=== PATIENT | male | born 1995 | race Caucasian/White ===

== ENCOUNTER 2018-05-11 07:04 | Day surgery (SDC) | payer BC ==
--- NOTE | 2018-05-09 14:12 | HP ---
DATE OF SURGERY: 05/11/2018 ADMISSION DIAGNOSIS: Cholecystectomy. HISTORY OF PRESENT ILLNESS: The patient has symptomatic gallstones. Presented to the emergency room. Upper abdominal pain. Findings were discussed with him. Procedure was discussed with him and he wished to proceed. PAST MEDICAL HISTORY: ALLERGIES: NONE. MEDICATIONS: None. PAST SURGICAL HISTORY: None. SOCIAL HISTORY: One pack per day. ETOH negative. FAMILY HISTORY: Negative. REVIEW OF SYSTEMS: CVS: Negative. Pulmonary: Negative. PHYSICAL EXAMINATION: VITAL SIGNS: Normal. CHEST: Clear. COR: Regular. ABDOMEN: No palpable organomegaly or mass. IMPRESSION: Symptomatic cholelithiasis. PLAN: Laparoscopic cholecystectomy.
[2018-05-11] MEDS ORDERED: SUBLIMAZE 250 MCG/5 ML IV ONE (07:05)
[2018-05-11] MEDS ORDERED: BRIDION 200MG/2ML IV ONE (07:05)
[2018-05-11] MEDS ORDERED: Versed 2 MG/2 ML Injection IV ONE (07:05)
[2018-05-11] MEDS ORDERED: DIPRIVAN 200 MG/20 ML IV ONE (07:05)
[2018-05-11] MEDS ORDERED: Zemuron 100 MG/10 ML IV ONE (07:05)
[2018-05-11] MEDS ORDERED: TORAdol 30 mg Injection IV ONE (07:05)
[2018-05-11] MEDS ORDERED: XYLOCAINE 2%/Epi 1:200000 20ML VIAL MPF IJ ONE (07:05)
[2018-05-11] MEDS ORDERED: Sensorcaine 0.25% 10 ML ONE (07:26)
[2018-05-11] MEDS ORDERED: Lactated Ringers 1,000 ML IV ONE (07:26)
[2018-05-11] MEDS ORDERED: Lactated Ringers 1,000 ML IV SCH (07:30)
[2018-05-11] MEDS ORDERED: MEFOXIN 2 GM PREMIX** 2 GM/50 ML ML IV SCH (08:00)
[2018-05-11 12:22] VITALS: O2SAT 100
[2018-05-11 12:53] VITALS: BP 121/67; PULSE 67
--- NOTE | 2018-05-12 07:39 | OP ---
SURGERY DATE/TIME: 05/11/2018 1032 PREOPERATIVE DIAGNOSIS: Symptomatic cholelithiasis. POSTOPERATIVE DIAGNOSIS: Symptomatic cholelithiasis. PROCEDURE: Laparoscopic cholecystectomy. SURGEON: Dr. Guerrier. ANESTHESIA: General endotracheal tube by Myron Juarez CRNA. ESTIMATED BLOOD LOSS: None. DRAINS: None. COMPLICATIONS: None. CONDITION: Stable. INDICATIONS: Multiple small stones probably 1,000 pin point stones. A patient with upper abdominal pain, ultrasound revealing stones. DESCRIPTION OF PROCEDURE AND FINDINGS: Taken to surgery. General anesthetic, routine prep and drape. Veress needle inserted. Opening pressure of 1, insufflating pressure 14. Four - 5's. Good visualization. Cystic artery defined. Cystic artery defined. Both structures triply clipped and transected. Clips noted across and well approximated. Gallbladder rolled out of gallbladder fossa. The gallbladder delivered through upper abdominal port. It was necessary to empty the gallbladder. It had nearly a 1,000 stones. Field is clean and dry. Hole closure device used. Again, the field was dry. CO2 exsufflated. Skin closed with 4-0 Vicryl and Steri-Strips. The patient tolerated the procedure satisfactorily.
== END 2018-05-11 12:45 | disposition home or self-care (01) ==
LOC: SDC 07:04
PROVIDERS: ATTEND Surgery
DX: K80.20 Calculus of gallbladder without cholecystitis without obstruction (principal)
CPT/HCPCS: 88304; J0694; J1885; J2250; J2704; J3010

== ENCOUNTER 2022-08-22 16:23 | Emergency (ER) | payer OTHER ==
[2022-08-22 16:31] VITALS: O2SAT 98
[2022-08-22 16:56] LABS: Absolute Neutrophil Ct (ANC) 5.53 x10^3/uL (1.4-6.9); BASOPHIL % 0.7 % (0.0-0.4); Basophil (Absolute #) 0.06 x10^3/uL (0-0.4); Eosinophil % 1.3 % (0.00-5.0); Eosinophil (Absolute #) 0.12 x10^3/uL (0-0.5); Hematocrit 42.9 % (42-50); Hemoglobin 13.8 g/dL (12.5-18.0); IMMATURE GRAN # 0.05 x10^3u/L (0.00-0.03); IMMATURE GRAN % 0.6 % (0.00-0.4); Lymphocyte (Absolute #) 2.41 x10^3/uL (1.0-4.6); Lymphocytes % 26.6 % (24.0-44.0); Mean Cell Volume 90.5 fL (78-100); Mean Corpuscular Hemoglobin 29.1 pg (26-32); Mean Corpuscular Hgb Concent. 32.2 g/dL (32-36); Mean Platelet Volume 10.5 fL (7.5-11.0); Monocytes % 9.9 % (0.0-12.0); Neutrophil % 60.9 % (36.0-66.0); Platelet Count 270 x10^3/uL (150-450); Red Blood Count 4.74 x10^6/uL (4.1-5.6); White Blood Count 9.1 x10^3/uL (4.0-10.5)
[2022-08-22 17:06] LABS: ACETAMINOPHEN < 10 ug/ml (10-30); ALBUMIN 4.3 g/dL (3.5-5.0); ALKALINE PHOSPHATASE 56 U/L (38-126); ANION GAP 9.4 MEQ/L (5-15); BLOOD UREA NITROGEN 11 mg/dL (9-20); CHLORIDE 105 mmol/L (98-107); Calcium 9.1 mg/dL (8.4-10.2); Carbon Dioxide 30 mmol/L (22-30); Creatinine 1 1.45 mg/dL (0.66-1.25); EST GLOMERULAR FILTRATION RATE > 60.0 ML/MIN; ETHYL ALCOHOL < 10 mg/dL (0-10); Glucose 104 mg/dL (74-106); Potassium 3.7 mmol/L (3.5-5.1); SALICYLATE < 1.0 mg/dL (2-20); SGOT/AST 26 U/L (17-59); SGPT/ALT 24 U/L (0-50); SODIUM 141 mmol/L (137-145); Total Protein 7.4 g/dL (6.3-8.2)
[2022-08-22 17:26] LABS: Appearance Clear (Clear); Bacteria None Seen /HPF (None Seen); Bilirubin Negative (Negative); Blood Negative (Negative); Epithelial Cells None Seen /HPF (None Seen); Glucose, Urine Negative (Negative); Hyaline Casts NONE SEEN /LPF (0-2); Ketones Negative (Negative); Leukocyte Esterase Negative (Negative); Nitrite Negative (Negative); Ph 7.5 (4.6-8.0); Protein,Urine Dip Negative (Negative); RBC 0-2 /HPF (0-5); Urobilinogen 0.2 mg/dL (0.2); WBC 0-2 /HPF (0-5)
[2022-08-22 17:29] VITALS: PULSE 82
[2022-08-22 17:35] LABS: ADD URINE CULTURE? NO (NO)
[2022-08-22 17:38] LABS: Amphetamine,Urine POSITIVE (NEGATIVE); Barbiturate,Urine NEGATIVE (NEGATIVE); Benzodiazepine,Urine NEGATIVE (NEGATIVE); Cocaine,Urine NEGATIVE (NEGATIVE); Methadone,Urine NEGATIVE (NEGATIVE); Opiate,Urine NEGATIVE (NEGATIVE); PCP,Urine NEGATIVE (NEGATIVE); THC,Urine NEGATIVE (NEGATIVE)
--- NOTE | 2022-08-22 17:42 | ERPHSYRPT ---
- History of Present Illness Source: patient, police Exam Limitations: no limitations Patient Subjective Stated Complaint: Pt states "I got into an arguement with my and she thought I was going to kill myself. I grabbed my gun and she took it away from me." Triage Nursing Assessment: PT presented alert and oriented X 3, skin pwd. pt ambulates with an upright steady gait, able to speak in clear full sentenecs pt resting comfortably on the bed playing on his phone. Timing/Duration: today, sudden Severity of Symptoms-Max: severe Severity of Symptoms-Current: mild Context related to: spouse Suicidal thoughts: gesture, specific plan Associated Symptoms: angry, agitated Previous symptoms: same symptoms as today Hx Tetanus, Diphtheria Vaccination/Date Given: No Hx Influenza Vaccination/Date Given: No Hx Pneumococcal Vaccination/Date Given: No Immunizations Up to Date: No <MAI CORNEJO - Last Filed: 08/22/22 18:26> <ELZBIETA GRAVES - Last Filed: 08/22/22 20:14> - History of Present Illness Time Seen by Provider: 08/22/22 16:26 Physician History: 27-year-old male with history of anxiety depression, ADD is brought in the ER by PD with suicidal ideations. Patient reports he had arguments with his earlier and he pulled a gun which she took it away. He does later [place] in the country, was sitting next to the frost and realized that he does not want to commit suicide and his kids need him. Patient reports is more of anger related and has happened few months ago as well. Denies any actual suicidal attempt in the past. Denies any homicidal ideations. No ideas of hopelessness/helpl essness. Denies any alcohol or drug use. (MAI CORNEJO) Allergies/Adverse Reactions: No Known Drug Allergies Allergy (Verified 08/22/22 16:30) Home Medications: Bupropion HCl Xl 150 mg [Wellbutrin XL 150 MG] 300 mg PO DAILY 08/22/22 [History] Dextroamphetamine/Amphetamine [Adderall 10 mg Tablet] 10 mg PO BID 08/22/22 [His tory] Travel Risk - International Travel Have you traveled outside of the country in past 3 weeks: No - Coronavirus Screening Are you exhibiting any of the following symptoms?: No Close contact with a COVID-19 positive Pt in past 14-21 Days: No - Vaccine Status Have you recieved a Covid-19 vaccination: No <MAI CORNEJO - Last Filed: 08/22/22 18:26> - Past Medical History Pertinent Past Medical History: Yes Neurological History: No Pertinent History ENT History: No Pertinent History Cardiac History: No Pertinent History Respiratory History: No Pertinent History Endocrine Medical History: No Pertinent History Musculoskeletal History: No Pertinent History GI Medical History: Gallbladder Disease History: No Pertinent History Psycho-Social History: Depression Male Reproductive Disorders: No Pertinent History - Past Surgical History Past Surgical History: Yes Neuro Surgical History: No Pertinent History Cardiac: No Pertinent History Respiratory: No Pertinent History Gastrointestinal: Cholecystectomy Genitourinary: No Pertinent History Musculoskeletal: No Pertinent History Male Surgical History: No Pertinent History - Social History Smoking Status: Current every day smoker How long have you smoked: 7years Exposure to second hand smoke: Yes Drug Use: none Patient Lives Alone: No <MAI CORNEJO - Last Filed: 08/22/22 18:26> - Review of Systems Constitutional: No Symptoms Eyes: No Symptoms Ears, Nose, & Throat: No Symptoms Respiratory: No Symptoms Cardiac: No Symptoms Abdominal/Gastrointestinal: No Symptoms Genitourinary Symptoms: No Symptoms Musculoskeletal: No Symptoms Skin: No Symptoms Neurological: No Symptoms Psychological: Anxiety, Depression Endocrine: No Symptoms Immunological/Allergic: No Symptoms <MAI CORNEJO - Last Filed: 08/22/22 18:26> - Physical Exam General Appearance: no apparent distress, alert Eyes, Ears, Nose, Throat Exam: normal ENT inspection, TM abnormal (L) Neck Exam: supple, full range of motion Respiratory Exam: normal breath sounds, chest tenderness, lungs clear Cardiovascular Exam: regular rate/rhythm, normal heart sounds Gastrointestinal/Abdominal Exam: soft, No tenderness Extremities Exam: normal inspection, normal range of motion Neurological Exam: alert, calm, 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, oriented x 3, No normal mood/affect Appearance: appropriate appearance, appropriate insight, neat, no memory impairment Behavior/Eye Contact/Speech: alert & cooperative, cooperative, good eye contact, normal speech Thoughts/Hallucinations: normal thought pattern, no apparent hallucination Skin Exam: normal color SpO2 Interpretation: normal SpO2: 98 O2 Delivery: Room Air <MAI CORNEJO - Last Filed: 08/22/22 18:26> - Nursing Vital Signs Nursing Vital Signs: Initial Vital Signs Temperature 98.3 F 08/22/22 16:23 Pulse Rate 99 H 08/22/22 16:23 Respiratory Rate 18 08/22/22 16:23 Blood Pressure 139/84 08/22/22 16:23 O2 Sat by Pulse Oximetry 98 08/22/22 16:23 Pain Scale Pain Intensity 0 Ordered Tests: Active Orders 24 hr Category Date Time Status ACETAMINOPHEN Stat Lab 08/22/22 16:49 Completed CBC W DIFF Stat Lab 08/22/22 16:49 Completed CMP Stat Lab 08/22/22 16:49 Completed ETHYL ALCOHOL Stat Lab 08/22/22 16:49 Completed SALICYLATE Stat Lab 08/22/22 16:49 Completed UA W/RFX UR CULTURE Stat Lab 08/22/22 17:18 Completed Urine Triage Profile Stat Lab 08/22/22 17:18 Completed Medication Summary Discontinued Medications Generic Name Dose Route Start Last Admin Trade Name David PRN Reason Stop Dose Admin Sodium Chloride 1,000 mls @ 999 mls/hr 08/22/22 18:25 08/22/22 19:05 Sodium Chloride 0.9% 1000 Ml IV 08/22/22 19:25 Not Given .Q1H1M STA Lab/Rad Data: Laboratory Result Diagrams 08/22/22 16:49 08/22/22 16:49 Laboratory Results 08/22/22 08/22/22 08/22/22 Range/Units 17:18 17:18 16:49 WBC (4.0-10.5) x10^3/uL RBC (4.1-5.6) x10^6/uL Hgb (12.5-18.0) g/dL Hct (42-50) % MCV (78-100) fL MCH (26-32) pg MCHC (32-36) g/dL RDW (11.5-14.0) % Plt Count (150-450) x10^3/uL MPV (7.5-11.0) fL Gran % (36.0-66.0) % Immature Gran % (Auto) (0.00-0.4) % Nucleat RBC Rel Count (0.00-0.1) % Eos # (Auto) (0-0.5) x10^3/uL Immature Gran # (Auto) (0.00-0.03) x10^3u/L Absolute Lymphs (auto) (1.0-4.6) x10^3/uL Absolute Monos (auto) (0.0-1.3) x10^3/uL Absolute Nucleated RBC (0.00-0.01) x10^3u/L Lymphocytes % (24.0-44.0) % Monocytes % (0.0-12.0) % Eosinophils % (0.00-5.0) % Basophils % (0.0-0.4) % Absolute Granulocytes (1.4-6.9) x10^3/uL Basophils # (0-0.4) x10^3/uL Sodium 141 (137-145) mmol/L Potassium 3.7 (3.5-5.1) mmol/L Chloride 105 (98-107) mmol/L Carbon Dioxide 30 (22-30) mmol/L Anion Gap 9.4 (5-15) MEQ/L BUN 11 (9-20) mg/dL Creatinine 1.45 H (0.66-1.25) mg/dL Estimated GFR > 60.0 ML/MIN Glucose 104 (74-106) mg/dL Calcium 9.1 (8.4-10.2) mg/dL Total Bilirubin 0.40 (0.2-1.3) mg/dL AST 26 (17-59) U/L ALT 24 (0-50) U/L Alkaline Phosphatase 56 (38-126) U/L Serum Total Protein 7.4 (6.3-8.2) g/dL Albumin 4.3 (3.5-5.0) g/dL Urine Color Yellow (Yellow) Urine Appearance Clear (Clear) Urine pH 7.5 (4.6-8.0) Ur Specific [place] 1.010 (1.005-1.030) Urine Protein Negative (Negative) Urine Glucose (UA) Negative (Negative) mg/dL Urine Ketones Negative (Negative) Urine Blood Negative (Negative) Urine Nitrite Negative (Negative) Urine Bilirubin Negative (Negative) Urine Urobilinogen 0.2 (0.2) mg/dL Ur Leukocyte Esterase Negative (Negative) U Hyaline Cast (Auto) NONE SEEN (0-2) /LPF Urine Microscopic RBC 0-2 (0-5) /HPF Urine Microscopic WBC 0-2 (0-5) /HPF Ur Epithelial Cells None Seen (None Seen) /HPF Urine Bacteria None Seen (None Seen) /HPF Urine Culture Reflexed NO (NO) Salicylates < 1.0 L (2-20) mg/dL Urine Opiates Level NEGATIVE (NEGATIVE) Ur Methadone NEGATIVE (NEGATIVE) Acetaminophen < 10 L (10-30) ug/ml Urine Barbiturates NEGATIVE (NEGATIVE) Ur Phencyclidine (PCP) NEGATIVE (NEGATIVE) Urine Amphetamine POSITIVE (NEGATIVE) U Benzodiazepine Level NEGATIVE (NEGATIVE) Urine Cocaine NEGATIVE (NEGATIVE) Urine Marijuana (THC) NEGATIVE (NEGATIVE) Ethyl Alcohol < 10 (0-10) mg/dL 08/22/22 Range/Units 16:49 WBC 9.1 (4.0-10.5) x10^3/uL RBC 4.74 (4.1-5.6) x10^6/uL Hgb 13.8 (12.5-18.0) g/dL Hct 42.9 (42-50) % MCV 90.5 (78-100) fL MCH 29.1 (26-32) pg MCHC 32.2 (32-36) g/dL RDW 14.0 (11.5-14.0) % Plt Count 270 (150-450) x10^3/uL MPV 10.5 (7.5-11.0) fL Gran % 60.9 (36.0-66.0) % Immature Gran % (Auto) 0.6 H (0.00-0.4) % Nucleat RBC Rel Count 0.0 (0.00-0.1) % Eos # (Auto) 0.12 (0-0.5) x10^3/uL Immature Gran # (Auto) 0.05 H (0.00-0.03) x10^3u/L Absolute Lymphs (auto) 2.41 (1.0-4.6) x10^3/uL Absolute Monos (auto) 0.90 (0.0-1.3) x10^3/uL Absolute Nucleated RBC 0.00 (0.00-0.01) x10^3u/L Lymphocytes % 26.6 (24.0-44.0) % Monocytes % 9.9 (0.0-12.0) % Eosinophils % 1.3 (0.00-5.0) % Basophils % 0.7 (0.0-0.4) % Absolute Granulocytes 5.53 (1.4-6.9) x10^3/uL Basophils # 0.06 (0-0.4) x10^3/uL Sodium (137-145) mmol/L Potassium (3.5-5.1) mmol/L Chloride (98-107) mmol/L Carbon Dioxide (22-30) mmol/L Anion Gap (5-15) MEQ/L BUN (9-20) mg/dL Creatinine (0.66-1.25) mg/dL Estimated GFR ML/MIN Glucose (74-106) mg/dL Calcium (8.4-10.2) mg/dL Total Bilirubin (0.2-1.3) mg/dL AST (17-59) U/L ALT (0-50) U/L Alkaline Phosphatase (38-126) U/L Serum Total Protein (6.3-8.2) g/dL Albumin (3.5-5.0) g/dL Urine Color (Yellow) Urine Appearance (Clear) Urine pH (4.6-8.0) Ur Specific [place] (1.005-1.030) Urine Protein (Negative) Urine Glucose (UA) (Negative) mg/dL Urine Ketones (Negative) Urine Blood (Negative) Urine Nitrite (Negative) Urine Bilirubin (Negative) Urine Urobilinogen (0.2) mg/dL Ur Leukocyte Esterase (Negative) U Hyaline Cast (Auto) (0-2) /LPF Urine Microscopic RBC (0-5) /HPF Urine Microscopic WBC (0-5) /HPF Ur Epithelial Cells (None Seen) /HPF Urine Bacteria (None Seen) /HPF Urine Culture Reflexed (NO) Salicylates (2-20) mg/dL Urine Opiates Level (NEGATIVE) Ur Methadone (NEGATIVE) Acetaminophen (10-30) ug/ml Urine Barbiturates (NEGATIVE) Ur Phencyclidine (PCP) (NEGATIVE) Urine Amphetamine (NEGATIVE) U Benzodiazepine Level (NEGATIVE) Urine Cocaine (NEGATIVE) Urine Marijuana (THC) (NEGATIVE) Ethyl Alcohol (0-10) mg/dL - Progress Progress: improved <MAI CORNEJO - Last Filed: 08/22/22 18:26> - Progress Counseled pt/family regarding: diagnosis <ELZBIETA GRAVES - Last Filed: 08/22/22 20:14> - Progress Progress Note: 08/22/22 18:26 27-year-old male with history of anxiety depression, ADD is brought in the ER by PD with suicidal ideations. Patient reports he had arguments with his earlier and he pulled a gun which she took it away. [place], was [place] to the frost and realized that he does not want to commit suicide and his kids need him. Patient reports is more of anger related and has happened few months ago as well. Denies any actual suicidal attempt in the past. Denies any homicidal ideations. No ideas of hopelessness/helplessness. Denies any alcohol or drug use. Patient has been Ed by PD, patient is calm throughout her stay in the ER. Baseline work-up showed some OMID and fluids are being given. Otherwise patient is medically cleared to go to [facility] evaluation. 08/22/22 18:57 Behavioral health evaluation is pending, care is transferred to Dr. Graves at shift change for final disposition (MAI CORNEJO) Patient accepted at [facility] at 1900. 08/22/22 20:13 EMS here to transport patient to facility at 2012 (ELZBIETA GRAVES) Medical Desision Making - Diagnostic Testing Diagnostic test were ordered, analyzed, and reviewed by me: Yes Radiological Interpretation: Reviewed by me - Risk of complications The pt has a high risk of morbidity or mortality based on: Decision regarding hospitilization or escalation of hosp level of care <ELZBIETA GRAVES - Last Filed: 08/22/22 20:14> <MAI CORNEJO - Last Filed: 08/22/22 18:26> - Departure Departure Disposition: Transfer ([facility]) Critical Care Time: No <ELZBIETA GRAVES - Last Filed: 08/22/22 20:14> - Departure Clinical Impression: Homicidal behavior Condition: Stable Referrals: GIANCARLO QUIÑONEZ, [facility] [facility] [Primary Care Provider] - Follow up/PCP as directed Instructions: Tips on Helping Change Behavior
[2022-08-22] MEDS ORDERED: Sodium Chloride 0.9% 1000 ML 1,000 ML IV STA (18:25)
[2022-08-22 19:49] VITALS: BP 135/74
== END 2022-08-22 20:15 ==
LOC: ED 16:23
DX: R45.850 Homicidal ideations (principal); R45.851 Suicidal ideations; Z79.899 Other long term (current) drug therapy; Z28.310 Unvaccinated for COVID-19; Z72.0 Tobacco use
CPT/HCPCS: 36415; 80053; 80143; 80179; 80307; 81001; 82077; 85025; 99285